=== PATIENT | female | born 2005 | race Caucasian/White ===

== ENCOUNTER 2024-11-05 10:01 | Emergency (ER) | payer OTHER, SELFPAY ==
[2024-11-05 10:04] VITALS: BP 113/79
[2024-11-05 11:01] VITALS: BP 120/75
[2024-11-05 11:33] VITALS: BP 120/75; BMI 19.1
[2024-11-05 12:35] LABS: Urine Character Clear (Clear)
[2024-11-05 12:41] LABS: HCG, Urine Qualitative Screen Negative
[2024-11-05 12:43] LABS: Urine Squamous Cell >30 /LPF (Few)
[2024-11-05 12:44] LABS: Urine Urothelial Cell 0-2 /LPF (FEW)
--- NOTE | 2024-11-05 12:44 | ED.GENMED ---
History of Present Illness
General
Chief Complaint: Abdominal Pain
Time Seen by Provider: 11/05/24 10:29
History of Present Illness
History of Present Illness:
19 yo female presents to the emergency department for evaluation of pelvic pain for the past 4 to 5 days, acutely worsened this morning focal to the left lower quadrant. Worse when she sits down with pain rating toward the rectum. No associated
fevers or chills. No near syncope or vomiting. Denies any lower urinary tract voiding symptoms
Review of Systems
Review of Systems
Allergies reviewed?: Yes
All Other Systems: ROS reviewed and negative except as documented in HPI and ROS
Phy Exam
Physical Exam
Physical Exam:
GEN: Well appearing, NAD, WDWN
HEENT: Oral mucosa moist, no scleral icterus
Cardiac: Regular rate
Lung: No respiratory distress, no tachypnea
Abdomen: Soft, diffuse lower abdominal tenderness worse in the left lower quadrant, no rigidity or peritoneal signs
MSK: No gross deformity or injuries
Skin: Good color, no pallor or jaundice, no rashes
Neuro: AO x3, moves all extremities freely
Psych: Calm, cooperative
Course
Orders/Labs/Results
Orders:
Orders
11/05/24 11:18
US Pelvis W Transvag Combined Urgent
Comment:
Reason For Exam: pelvic pain
11/05/24 11:19
Test Result ONCE
11/05/24 12:19
Beta Hcg Urine Qualitative Screen [HCG, Urine Qualitative Screen] Urgent
Date Specimen was Collected: 11/05/24
Time Specimen was Collected: 11:28
Urinalysis Reflex To Culture Urgent
Date Specimen was Collected: 11/05/24
Time Specimen was Collected: 11:28
Urine Microscopic Reflex Cult Urgent
Urine Culture Urgent
YESENIA Source: U
Specimen Description:
Date Specimen was Collected: 11/05/24
Time Specimen was Collected: 11:28
Abnormal Lab Results
11/05/24
12:19
Ur Occult Blood Reflex 1+ A
(Negative)
Urine Bacteria (Reflex) Moderate A
(Negative)
Vital Signs
Initial and Last Documented VS:
Initial Vital Signs
Temp Pulse Resp BP Pulse Ox
98.2 F 89 16 113/79 100
11/05/24 10:04 11/05/24 10:04 11/05/24 10:04 11/05/24 10:04 11/05/24 10:04
Last Documented Vital Signs
Temp Pulse Resp BP Pulse Ox
97.6 F 82 16 120/75 98
11/05/24 11:33 11/05/24 11:33 11/05/24 11:33 11/05/24 11:33 11/05/24 12:46
MDM/Problems Addressed
MDM/Problems Addressed:
Imaging reveals hemorrhagic left ovarian cyst. She was previously medicated for recurrent ovarian cyst with norethindrone and will restart this today. She is clinically stable with no signs of significant hemorrhagic complications warranting
urgent LABORATORY DIRECTOR consult. She plans to establish care with her local LABORATORY DIRECTOR within the next 2 weeks.
*Pulse Oximetry
SaO2: 98
Oxygen Mode of Delivery: Room air
Patient hypoxic: no
*Critical Care Note
Total Time (30-74mins, 75-104mins- exclusive of procedures): Not Applicable
ED Attending Note
-
Portions of this chart may have been created with voice recognition software.� Occasional wrong word or��sound alike� substitutions may have occurred due to the inherent limitations of voice recognition software.
Discharge Plan
Departure
Patient Disposition: Home (Routine Discharge)
Date of Disposition: 11/05/24
Time of Disposition: 12:45
Patient with high blood pressure during this ER visit?: No
Discharge Problem:
Hemorrhagic cyst of left ovary
Instructions: Ovarian cyst - ED discharge instructions
Prescriptions:
New
norethindrone acetate 5 mg tablet
5 mg PO BID 30 Days Qty: 60 0RF
Activity Restrictions/Additional Instructions:
You should get a repeat ultrasound in 6 to 8 weeks to reassess the ovarian cyst to determine if it has fully resolved
Interventions
Interventions:
*Risk Screen - Suicide Last Done: 11/05/24 10:04
*General Assessment Last Done: 11/05/24 10:04
*Neglect/Abuse Screening Last Done: 11/05/24 10:04
*ED- Fall Risk Assessment Last Done: 11/05/24 11:33
*ED COVID-19 Vaccine History Last Done: 11/05/24 11:33
*Nursing Disposition Last Done: 11/05/24 12:56
YI-Nfrcpf-Qjgtpyiopf Assessment Last Done: 11/05/24 11:33
Discharge Date and Time
Discharge Date/Time: 11/05/24 13:09
Print Language: SYRIAC
[2024-11-05 12:45] LABS: Urine Red Blood Cell 0-2 /HPF (0-2)
== END 2024-11-05 13:09 | disposition home or self-care (01) ==
LOC: EMR 10:01
PROVIDERS: Physician Assistant; EMERGENCY PHYSICIAN Student in an Organized Health Care Education/Training Program; FAMILY PHYSICIAN Student in an Organized Health Care Education/Training Program; REFERRING PHYSICIAN Nurse Practitioner
DX: N83.202 Unspecified ovarian cyst, left side (principal)
CPT/HCPCS: 99284; 76830; 76856; 81003; 81015; 81025; 87086

== ENCOUNTER 2025-03-31 10:37 | Emergency (ER) | payer OTHER, SELFPAY ==
[2025-03-31 10:45] VITALS: BP 143/93
--- NOTE | 2025-03-31 13:21 | ED.GENMED ---
History of Present Illness
General
Chief Complaint: Crisis Evaluation
Time Seen by Provider: 03/31/25 12:10
History of Present Illness
History of Present Illness:
19-year-old female with history of depression and anxiety presenting to the emergency department for increased depressive symptoms. Patient goes to college in [place], traveled home for the holidays. She notes that her father 1 year
ago yesterday. She notes being home has been very emotional for her with increased depressive thoughts. She notes waking up today, feeling like she did not want to be here. However, patient denies any thoughts of wanting to harm herself or any
plan. She denies any prior history of self-harm behavior. Patient is on Lexapro which she has been taking. She does admit that she had not been appropriately following up with her therapist in [place], has not seen her for the past month. Denies
acute medical complaint such as chest pain, difficulty breathing, shortness of breath
Phy Exam
Physical Exam
Physical Exam:
General: Well-appearing, no clinical signs of dehydration, nontoxic and in no acute distress
HEENT: protecting airway
Neck: appears supple
CV: Normal heart rate
Resp: No accessory muscle use
Abd: No distention
Extremities: No deformities, no swelling
Neuro: alert, no focal neurologic deficit
: deferred
Rectal: deferred
Psych: Normal affect
Skin: Intact
Course
Orders/Labs/Results
Orders:
Orders
03/31/25 11:26
Crisis Consult Urgent
Reason for Consult: depression
Vital Signs
Initial and Last Documented VS:
Initial Vital Signs
Temp Pulse Resp BP Pulse Ox
98.5 F 94 18 143/93 99
03/31/25 10:45 03/31/25 10:45 03/31/25 10:45 03/31/25 10:45 03/31/25 10:45
Last Documented Vital Signs
Temp Pulse Resp BP Pulse Ox
98.5 F 94 18 143/93 99
03/31/25 10:45 03/31/25 10:45 03/31/25 10:45 03/31/25 10:45 03/31/25 10:45
MDM/Problems Addressed
MDM/Problems Addressed:
19-year-old female with history of depression presenting for increased depressive symptoms. Vital signs on arrival are normal
On exam patient is resting comfortably, no acute distress or discomfort. Patient does have a depressed affect, otherwise does not appear to be a threat to herself or others. Patient stepfather is at bedside who is appropriately concerned. Patient
denying SI or HI. Admits to a lot of symptoms secondary to the passing of her dad, which happened a year ago today. Suspect symptoms are from underlying grief. Crisis to bedside, did see and evaluate patient. Feel stable for outpatient follow-up
with resources provided. Both patient and stepfather in agreement with this plan, feel comfortable with this plan. Return precautions discussed and patient verbalized understanding
*Pulse Oximetry
SaO2: 99
Oxygen Mode of Delivery: Room air
Patient hypoxic: no
*Critical Care Note
Total Time (30-74mins, 75-104mins- exclusive of procedures): Not Applicable
ED Attending Note
-
Portions of this chart may have been created with voice recognition software.� Occasional wrong word or��sound alike� substitutions may have occurred due to the inherent limitations of voice recognition software.
Discharge Plan
Departure
Patient Disposition: Home (Routine Discharge)
Date of Disposition: 03/31/25
Time of Disposition: 13:20
Patient with high blood pressure during this ER visit?: No
Condition: Good
Discharge Problem:
Depression
Instructions: Depression, Adult (DC)
Prescriptions:
No Action
norethindrone acetate 5 mg tablet
5 mg PO BID 30 Days Qty: 60 0RF
Referrals:
Teresa Cervantes CRNP [Family Provider, Internal Medicine]
Activity Restrictions/Additional Instructions:
You were seen in the emergency department for depressive symptoms
You were seen by our crisis team and provided resources for outpatient psychiatric follow-up. Please establish care with a therapist or psychiatrist for further assessment.
Please follow-up closely with your primary care physician as well.
Return to the emergency department for any worsening of your symptoms including any development of thoughts of wanting to hurt yourself, or any development of chest pain, difficulty breathing, abdominal pain with persistent vomiting and inability to
tolerate food or liquid by mouth (concern for dehydration), weakness, headache or confusion, fever greater than 100.4, or any additional symptoms that are concerning to you.
Thank you for choosing [facility].
Interventions
Interventions:
*Risk Screen - Suicide Last Done: 03/31/25 10:45
*General Assessment Last Done: 03/31/25 10:50
*Neglect/Abuse Screening Last Done: 03/31/25 10:50
Discharge Date and Time
Print Language: [id number]
== END 2025-03-31 14:41 | disposition home or self-care (01) ==
LOC: EMR 10:37
PROVIDERS: EMERGENCY PHYSICIAN Student in an Organized Health Care Education/Training Program; FAMILY PHYSICIAN Nurse Practitioner
DX: F32.A Depression, unspecified (principal); F41.9 Anxiety disorder, unspecified; Z63.4 Disappearance and death of family member; Z91.199 Patient's noncompliance with other medical treatment and regimen due to unspecified reason
CPT/HCPCS: 99283